=== PATIENT | male | born 1965 | race Caucasian/White ===

== ENCOUNTER 2018-01-21 10:46 | Emergency (ER) | payer OTHER ==
[2018-01-21 10:47] VITALS: BMI 30.9
[2018-01-21 11:02] VITALS: BP 143/76; PULSE 83; RESP 18; TEMP 98; O2SAT 97
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
== END 2018-01-21 12:24 | disposition home or self-care (01) ==
LOC: H.ER 10:46
DX: S33.5XXA Sprain of ligaments of lumbar spine, initial encounter (principal); V43.62XA Car passenger injured in collision with other type car in traffic accident, initial encounter; Y92.414 Local residential or business street as the place of occurrence of the external cause

== ENCOUNTER 2018-03-04 06:04 | Inpatient (IN) | payer OTHER ==
[2018-02-20 14:10] VITALS: BMI 31.4
[2018-03-04] MEDS ORDERED: Bacitracin Ointment 30 GM TUBE ONE (07:09)
[2018-03-04] MEDS ORDERED: Thrombin Topical 5,000 Int Units Spray Kit ONE (07:10)
[2018-03-04] MEDS ORDERED: Absorbable Gelatin Sponge Size 100 ONE (07:10)
[2018-03-04] MEDS ORDERED: APROTININ/FIBRINOGEN(TISSEEL) ONE (07:10)
[2018-03-04 07:28] LABS: HEMOGLOBIN 13.1 g/dL (12.0-18.0); MEAN CELL VOLUME 62.7 fl (80.0-94.0); MEAN CORPUSCULAR HEMOGLOBIN 19.7 pg (27.0-31.0); MEAN CORPUSCULAR HGB CONC 31.4 g/dL (33.0-37.0); RBC 6.65 Mil/uL (4.40-5.90); RED CELL DISTRIBUTION WIDTH 17.2 % (11.5-14.5); WHITE BLOOD COUNT 6.1 K/uL (4.8-10.8)
[2018-03-04] MEDS ORDERED: Succinylcholine 200 mg/10 ml Inj IV ONE (07:41)
[2018-03-04] MEDS ORDERED: Rocuronium 10 mg/ml (5 ml) ONE (07:41)
[2018-03-04] MEDS ORDERED: Midazolam 2 MG/2 ML VIAL ONE (07:41)
[2018-03-04] MEDS ORDERED: Propofol 10 mg/ml Inj (20 ML) ONE ×2 (07:41→09:22)
[2018-03-04] MEDS ORDERED: Lidocaine 4% (Laryng-O-Jet) Kit MM ONE (07:41)
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
[2018-03-04] MEDS ORDERED: Lactated Ringer's 1,000 ML IV ONE (09:00)
[2018-03-04] MEDS ORDERED: Sodium Chloride 0.9% 100 ML IV ONE ×2 (09:10→09:15)
[2018-03-04] MEDS ORDERED: Lidocaine 2% w Epi 1:100,000 Inj IJ ONE (09:10)
[2018-03-04] MEDS ORDERED: HEMOSTATIC MATRIX 10 ML DIS.NEEDLE TOP ONE (09:36)
[2018-03-04] MEDS ORDERED: ePHEDrine 50 mg/ml Inj ONE (09:41)
[2018-03-04] MEDS ORDERED: Neostigmine 1:1000 (1 mg/ml) Inj ONE (09:45)
[2018-03-04] MEDS: Bupivacaine HCl 0.25% PF (30 ml) Inj ONE ×2 (09:52→10:14)
[2018-03-04] MEDS ORDERED: Sodium Chloride 0.9% 500 ML IV ONE (10:15)
[2018-03-04] MEDS: HYDROmorphone 0.5 mg/0.5 ml ISec IVP PRN ×3 (10:48→11:09)
--- NOTE | 2018-03-04 10:49 | PCM.SURG1 ---
Surgeon's Initial Post Op Note - Surgeon's Notes Surgeon: Sagar Ralph MD Wastewater Treatment Operator: Yury PRINCE , Osei PRINCE Type of Anesthesia: General Endo Anesthesia Administered By: Giovani Pre-Operative Diagnosis: LUmbar herniated disc Operative Findings: same Post-Operative Diagnosis: as above Operation Performed: Left L3-L4 laminectomy Specimen/Specimens Removed: none Estimated Blood Loss: EBL {In ML}: 25 Blood Products Given: N/A Drains Used: Martin Bland (x1 ) Post-Op Condition: Good Date of Surgery/Procedure: 03/04/18 Time of Surgery/Procedure: 09:30
[2018-03-04] MEDS ORDERED: oxyCODONE 5 mg Immediate Release Tab PO PRN (11:04)
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
--- NOTE | 2018-03-04 12:27 | RAD ---
PROCEDURE: Intraoperative Fluoroscopy. HISTORY: Laminectomy FINDINGS: Fluoroscopic assistance was provided for laminectomy. Please refer to the operative report from JOE Tse. Total fluoroscopic time (continuous mode) utilized during the procedure 7.2 (seconds). Total exam DLP: (mGy) 4.03
[2018-03-04] MEDS ORDERED: Dextrose 50% SYRINGE Inj (50 ml) IV PRN (13:54)
[2018-03-04] MEDS ORDERED: Glucagon Recombinant 1 mg Inj IM PRN (13:54)
--- NOTE | 2018-03-04 20:50 | OP ---
PROCEDURE DATE: 03/04/2018 PREOPERATIVE DIAGNOSES: Lumbar spondylosis and instability. POSTOPERATIVE DIAGNOSES: Lumbar spondylosis and instability. PROCEDURE: Left L3-4 hemilaminotomy, medial facetectomy, removal of spondylosis, decompression, L3-L5 posterolateral fusion. SURGEON: Sagar Ralph MD BEZEL CUTTER: SURESH Hawkins. Fluoroscopy has been used. Microscope has been used. Yury Guadalupe is a physician assistant professor of marine biology who helped me perform the surgery, he stayed throughout the case from the beginning to the end. DESCRIPTION OF PROCEDURE: The patient was brought to the operating room, anesthetized with general endotracheal anesthesia, and placed in a prone position on a Martin table. Care was taken to protect all the pressure points. Back of the lumbar area thoroughly prepped and draped in a standard sterile manner after marking for a skin incision for a lumbar laminectomy. After prepping and draping the area, the skin has been incised. Bleeding skins had been controlled with bipolar air battle manager. Using a Bovie air battle manager, paraspinal muscles had been detached, attachments of spinous process, lamina at L3-4. Fluoroscopy has been used in order to confirming this level. Monica retractor has been applied to alter the facet joint of L3-4. Under microscopic examination, by using a high-speed drill, the lamina of L3-4, medial part of the facets L3-4 have been drilled. Drilling is continued until top and bottom of the ligamentum flavum seen. Drilling is also continued on the medial part of the facets until the turn of ligamentum flavum seen. Once this had been done, thinned out the lamina, medial part of the facets and ligamentum flavum has been removed, decompressing this area. At this point, lateral aspect of the facet joint and transverse process of L3-4 had been decorticated and previously identified rods have been noted in this area. Posterolateral fusion has been achieved at L3-L5 achieving instability. After the hemostasis was best achieved. Martin drain placed in to the wound, brought out through a separate stab neck skin incision. Muscles and fascia were closed with 1 Vicryl, subcutaneous with 3 Vicryl. Skin has been closed with intradermal 3 Vicryl stitches. The patient tolerated the procedure. After the procedure, mobilized to the recovery room in stabilized condition. Sagar Ralph MD
[2018-03-05 06:23] LABS: ALB/GLOB RATIO 1.1 (1.0-2.1); ALBUMIN 3.7 g/dL (3.5-5.0); ALT/SGPT 37 U/L (21-72); AST/SGOT 28 U/L (17-59); BLOOD UREA NITROGEN 10 mg/dl (9-20); CALCIUM 8.7 mg/dL (8.4-10.2); GFR AFRICAN-AMERICAN > 60; GFR NON-AFRICAN AMERICAN > 60
[2018-03-05 06:26] LABS: BASO % 0.2 % (0.0-2.0); EOS # 0.1 K/uL (0.0-0.7); HEMOGLOBIN 11.7 g/dL (12.0-18.0); LYMPH # 0.9 K/uL (1.0-4.3); LYMPH % 8.5 % (20.0-40.0); MEAN CELL VOLUME 61.6 fl (80.0-94.0); MEAN CORPUSCULAR HEMOGLOBIN 19.7 pg (27.0-31.0); MEAN PLATELET VOLUME 8.9 fl (7.2-11.7); MONO # 1.1 K/uL (0.0-0.8); NEUT % 79.3 % (50.0-75.0); NRBC % 0.1 % (0.0-0.0); PLATELET COUNT 257 K/uL (130-400); RBC 5.94 Mil/uL (4.40-5.90); RED CELL DISTRIBUTION WIDTH 16.9 % (11.5-14.5); WHITE BLOOD COUNT 10.1 K/uL (4.8-10.8)
[2018-03-05] MEDS ORDERED: SITAGLIPTIN PHOS PO SCH (09:00)
[2018-03-05] MEDS ORDERED: METFORMIN HCL PO SCH (09:00)
[2018-03-05] MEDS ORDERED: [UNRECOGNIZED DRUG - OTHER] PO SCH (09:00)
[2018-03-05] MEDS ORDERED: TELMISARTAN 40 MG PO SCH (09:00)
--- NOTE | 2018-03-05 09:05 | CP.PCM.PN ---
Subjective - Date & Time of Evaluation Date of Evaluation: 03/05/18 Time of Evaluation: 08:00 - Subjective Subjective: Patient seen and examined at bedside comfortable. Pain well controlled, 5/10 current. Gloria diet. Pos void. Neg BM. No acute events overnight. Objective - Vital Signs/Intake and Output Vital Signs (last 24 hours): Temp Pulse Resp BP Pulse Ox 99.6 F 80 20 130/70 95 03/05/18 08:02 03/05/18 08:02 03/05/18 08:02 03/05/18 08:34 03/05/18 08:02 Intake and Output: 03/05/18 03/05/18 06:59 18:59 Output Total 30 Balance -30 - Medications Medications: Current Medications Acetaminophen (Tylenol 325mg Tab) 650 mg PO Q6 [facility] Last Admin: 03/05/18 04:02 Dose: 650 mg Atorvastatin Calcium (Lipitor) 20 mg PO DAILY [facility] Last Admin: 03/05/18 08:35 Dose: 20 mg Cyclobenzaprine HCl (Flexeril) 5 mg PO TID [facility] Last Admin: 03/05/18 08:34 Dose: 5 mg Dextrose (Dextrose 50% Inj) 0 ml IV STAT PRN; Protocol PRN Reason: Hypoglycemia Protocol Dextrose (Glutose 15) 0 gm PO ONCE PRN; Protocol PRN Reason: Hypoglycemia Protocol Docusate Sodium (Colace) 100 mg PO BID [facility] Last Admin: 03/05/18 08:35 Dose: 100 mg Glucagon (Glucagen Diagnostic Kit) 0 mg IM STAT PRN; Protocol PRN Reason: Hypoglycemia Protocol Vancomycin HCl 1 gm/ Sodium (Chloride) 250 mls @ 166.667 mls/hr IVPB Q12H [facility] PRN Reason: Protocol Stop: 03/05/18 12:59 Last Admin: 03/04/18 23:05 Dose: 166.667 mls/hr Losartan Potassium (Cozaar) 50 mg PO DAILY [facility] Metformin HCl (Glucophage) 500 mg PO BID [facility] Last Admin: 03/05/18 08:35 Dose: 500 mg Ondansetron HCl (Zofran Inj) 4 mg IVP Q6 PRN PRN Reason: Nausea/Vomiting Oxycodone HCl (Oxycodone Immediate Release Tab) 5 mg PO Q3 PRN PRN Reason: Pain, severe (8-10) Last Admin: 03/04/18 17:18 Dose: 5 mg Ramipril (Altace) 2.5 mg PO DAILY [facility] Last Admin: 03/05/18 08:34 Dose: 2.5 mg Sennosides (Senokot Tab) 17.2 mg PO HS [facility] Last Admin: 03/04/18 22:48 Dose: 17.2 mg Sitagliptin Phosphate (Januvia) 100 mg PO DAILY [facility] Last Admin: 03/05/18 08:34 Dose: 100 mg Tramadol HCl (Ultram) 50 mg PO Q4 PRN PRN Reason: Pain, moderate (4-7) - Labs Labs: 03/05/18 05:25 03/05/18 05:25 - Back Exam Additional comments: Lumbar: Dressings intact will mild bloody drainage from drain sites, MEL drain intact with mild bloody drainage, mild swelling and tenderness sensation intact SP/DP/TN motor intact EHL/FHL pedal pulses intact Assessment and Plan (1) Herniated lumbar intervertebral disc Assessment & Plan: POD#1 s/p Left L3-L4 laminectomy -Drain output high, will monitor and possibly remove bridger AM -continue abx while drains in -pain control -PT/OT -discharge planning -Above d/w Dr. Dang in agreement Status: Acute
--- NOTE | 2018-03-05 10:12 | CP.PCM.PN ---
Subjective - Date & Time of Evaluation Date of Evaluation: 03/05/18 Time of Evaluation: 07:20 - Subjective Subjective: Patient seen and examined bedside with Dr Lee sitting in chair. Reports had PT and was able to ambulate w/o difficulty. Denies fever, n,v,abd pain, chest pain, SOB. . MEL drainage hematic. Patient had fever yesterday. no leukocytosis. will monitor Objective - Vital Signs/Intake and Output Vital Signs (last 24 hours): Temp Pulse Resp BP Pulse Ox 99.6 F 80 20 130/70 95 03/05/18 08:02 03/05/18 08:02 03/05/18 08:02 03/05/18 08:34 03/05/18 08:02 Intake and Output: 03/05/18 03/05/18 06:59 18:59 Output Total 30 Balance -30 - Medications Medications: Current Medications Acetaminophen (Tylenol 325mg Tab) 650 mg PO Q6 [facility] Last Admin: 03/05/18 04:02 Dose: 650 mg Atorvastatin Calcium (Lipitor) 20 mg PO DAILY [facility] Last Admin: 03/05/18 08:35 Dose: 20 mg Cyclobenzaprine HCl (Flexeril) 5 mg PO TID [facility] Last Admin: 03/05/18 08:34 Dose: 5 mg Dextrose (Dextrose 50% Inj) 0 ml IV STAT PRN; Protocol PRN Reason: Hypoglycemia Protocol Dextrose (Glutose 15) 0 gm PO ONCE PRN; Protocol PRN Reason: Hypoglycemia Protocol Docusate Sodium (Colace) 100 mg PO BID [facility] Last Admin: 03/05/18 08:35 Dose: 100 mg Glucagon (Glucagen Diagnostic Kit) 0 mg IM STAT PRN; Protocol PRN Reason: Hypoglycemia Protocol Vancomycin HCl 1 gm/ Sodium (Chloride) 250 mls @ 166.667 mls/hr IVPB Q12H [facility] PRN Reason: Protocol Stop: 03/05/18 12:59 Last Admin: 03/04/18 23:05 Dose: 166.667 mls/hr Losartan Potassium (Cozaar) 50 mg PO DAILY [facility] Metformin HCl (Glucophage) 500 mg PO BID [facility] Last Admin: 03/05/18 08:35 Dose: 500 mg Ondansetron HCl (Zofran Inj) 4 mg IVP Q6 PRN PRN Reason: Nausea/Vomiting Oxycodone HCl (Oxycodone Immediate Release Tab) 5 mg PO Q3 PRN PRN Reason: Pain, severe (8-10) Last Admin: 03/04/18 17:18 Dose: 5 mg Ramipril (Altace) 2.5 mg PO DAILY [facility] Last Admin: 03/05/18 08:34 Dose: 2.5 mg Sennosides (Senokot Tab) 17.2 mg PO HS [facility] Last Admin: 03/04/18 22:48 Dose: 17.2 mg Sitagliptin Phosphate (Januvia) 100 mg PO DAILY [facility] Last Admin: 03/05/18 08:34 Dose: 100 mg Tramadol HCl (Ultram) 50 mg PO Q4 PRN PRN Reason: Pain, moderate (4-7) - Labs Labs: 03/05/18 05:25 03/05/18 05:25 - Constitutional Appears: Non-toxic, No Acute Distress - Head Exam Head Exam: ATRAUMATIC, NORMOCEPHALIC - Eye Exam Eye Exam: Normal appearance - ENT Exam ENT Exam: Mucous Membranes Moist - Neck Exam Neck Exam: Full ROM, Normal Inspection - Respiratory Exam Respiratory Exam: Clear to Ausculation Bilateral. absent: Rales, Rhonchi, Stridor - Cardiovascular Exam Cardiovascular Exam: REGULAR RHYTHM, +S1, +S2 - GI/Abdominal Exam GI & Abdominal Exam: Soft, Normal Bowel Sounds. absent: Tenderness - Back Exam Additional comments: dressing on lower back C/d/I. MEL drainage present - Neurological Exam Neurological Exam: Alert, Awake, Oriented x3 Neuro motor strength exam: Left Upper Extremity: 5, Right Upper Extremity: 5, Left Lower Extremity: 5, Right Lower Extremity: 5 - Psychiatric Exam Psychiatric exam: Normal Affect, Normal Mood - Skin Skin Exam: absent: Rash Assessment and Plan - Assessment and Plan (Free Text) Plan: Assessment/Plan 1)Lumbar disc herniation s/p Left L3-L4 laminectomy POD#1 -pain control tramadol, oxycodone HCL -Regular diet -Ortho recommendation appreciated 2) HTN c/w Telmisartan 40 mg daily 3) DM januvia 100 mg daily after regular diet 4)DVT Prophylaxis -SCD
[2018-03-05 13:46] LABS: ANISOCYTOSIS SLIGHT; EOSINOPHIL 1 % (0-7); LYMPHOCYTE 8 % (20-50); MONOCYTE 9 % (0-10); MYELOCYTE 1 % (0-0); NEUTROPHIL 80 % (42-75); PLATELET ESTIMATE NORMAL (NORMAL); REACTIVE LYMPHOCYTES 1 % (0-0); TOTAL CELLS COUNTED 100
[2018-03-05 13:47] LABS: HYPOCHROMIC SLIGHT; MICROCYTOSIS MODERATE
[2018-03-05] MEDS: ceFAZolin 2 GM in Sodium Chloride 0.9% 100 ML IVPB SCH (16:47)
[2018-03-06 00:05] VITALS: RESP 18
[2018-03-06] MEDS: ceFAZolin 2 GM in Sodium Chloride 0.9% 100 ML IVPB SCH (00:18)
[2018-03-06 08:04] VITALS: BP 138/75; PULSE 77; TEMP 98.8; O2SAT 94
--- NOTE | 2018-03-06 09:51 | CP.PCM.DIS ---
Provider - Provider Date of Admission: 03/04/18 10:49 Attending physician: Tong Hernandez MD Primary care physician: Tong Hernandez MD Time Spent in preparation of Discharge (in minutes): 20 Diagnosis - Discharge Diagnosis (1) S/P laminectomy Status: Acute Comment: -s/p Left L3-L4 laminectomy POD#2 (2) Herniated lumbar intervertebral disc Status: Chronic Comment: -s/p Left L3-L4 laminectomy POD#2 (3) Diabetes mellitus type 2 in obese Status: Chronic Hospital Course - Lab Results Lab Results: Most Recent Lab Values WBC 10.1 K/uL (4.8-10.8) D 03/05/18 05:25 RBC 5.94 Mil/uL (4.40-5.90) H 03/05/18 05:25 Hgb 11.7 g/dL (12.0-18.0) L 03/05/18 05:25 Hct 36.5 % (35.0-51.0) 03/05/18 05:25 MCV 61.6 fl (80.0-94.0) L 03/05/18 05:25 MCH 19.7 pg (27.0-31.0) L 03/05/18 05:25 MCHC 32.0 g/dL (33.0-37.0) L 03/05/18 05:25 RDW 16.9 % (11.5-14.5) H 03/05/18 05:25 Plt Count 257 K/uL (130-400) 03/05/18 05:25 MPV 8.9 fl (7.2-11.7) 03/05/18 05:25 Neut % (Auto) 79.3 % (50.0-75.0) H 03/05/18 05:25 Lymph % (Auto) 8.5 % (20.0-40.0) L 03/05/18 05:25 [place] % (Auto) 11.0 % (0.0-10.0) H 03/05/18 05:25 Eos % (Auto) 1.0 % (0.0-4.0) 03/05/18 05:25 Baso % (Auto) 0.2 % (0.0-2.0) 03/05/18 05:25 Neut # (Auto) 8.0 K/uL (1.8-7.0) H 03/05/18 05:25 Lymph # (Auto) 0.9 K/uL (1.0-4.3) L 03/05/18 05:25 [place] # (Auto) 1.1 K/uL (0.0-0.8) H 03/05/18 05:25 Eos # (Auto) 0.1 K/uL (0.0-0.7) 03/05/18 05:25 Baso # (Auto) 0.0 K/uL (0.0-0.2) 03/05/18 05:25 Neutrophils % (Manual) 80 % (42-75) H 03/05/18 05:25 Lymphocytes % (Manual) 8 % (20-50) L 03/05/18 05:25 Reactive Lymphs % 1 % (0-0) H 03/05/18 05:25 Monocytes % (Manual) 9 % (0-10) 03/05/18 05:25 Eosinophils % (Manual) 1 % (0-7) 03/05/18 05:25 Myelocytes % 1 % (0-0) H 03/05/18 05:25 Platelet Estimate Normal (NORMAL) 03/05/18 05:25 Hypochromasia (manual) Slight 03/05/18 05:25 Anisocytosis (manual) Slight 03/05/18 05:25 Microcytosis (manual) Moderate 03/05/18 05:25 Sodium 136 mmol/l (132-148) 03/05/18 05:25 Potassium 3.6 MMOL/L (3.6-5.0) 03/05/18 05:25 Chloride 99 mmol/L (98-107) 03/05/18 05:25 Carbon Dioxide 24 mmol/L (22-30) 03/05/18 05:25 Anion Gap 17 (10-20) 03/05/18 05:25 BUN 10 mg/dl (9-20) 03/05/18 05:25 Creatinine 0.9 mg/dl (0.8-1.5) 03/05/18 05:25 Est GFR ( Amer) > 60 03/05/18 05:25 Est GFR (Non-Af Amer) > 60 03/05/18 05:25 POC Glucose (mg/dL) 97 mg/dL (65-110) 03/06/18 06:11 Random Glucose 134 mg/dL (75-110) H 03/05/18 05:25 Calcium 8.7 mg/dL (8.4-10.2) 03/05/18 05:25 Total Bilirubin 1.3 mg/dl (0.2-1.3) 03/05/18 05:25 AST 28 U/L (17-59) 03/05/18 05:25 ALT 37 U/L (21-72) 03/05/18 05:25 Alkaline Phosphatase 80 U/L (38-126) 03/05/18 05:25 Total Protein 7.1 G/DL (6.3-8.2) 03/05/18 05:25 Albumin 3.7 g/dL (3.5-5.0) 03/05/18 05:25 Globulin 3.5 gm/dL (2.2-3.9) 03/05/18 05:25 Albumin/Globulin Ratio 1.1 (1.0-2.1) 03/05/18 05:25 Blood Type O POSITIVE 03/04/18 06:55 Antibody Screen Negative 03/04/18 06:55 BBK History Checked Patient has bt 03/04/18 06:55 - Hospital Course Hospital Course: 52 yo ,m, PMhx/o HTN, HLD, DM chronic LBP s/p lumbar fusion in the past persistent and chronic lower back pain with radiculopathy to L>R admitted for lumbar disc herniation and surgical intervention. Patient today s/p Left L3-L4 laminectomy POD#2 , doing well with physical therapy, hemodynamically stable, no surgical complications. Patient seen bedside by Dr hernandez. Patient clear to be discharge later during the day. F/u with Dr padilla in 7 days Discharge Exam - Head Exam Head Exam: ATRAUMATIC, NORMOCEPHALIC - Eye Exam Eye Exam: Normal appearance - ENT Exam ENT Exam: Mucous Membranes Moist - Respiratory Exam Respiratory Exam: Clear to PA & Lateral. absent: Rales, Rhonchi, Wheezes - Cardiovascular Exam Cardiovascular Exam: REGULAR RHYTHM, +S1, +S2 - GI/Abdominal Exam GI & Abdominal Exam: Normal Bowel Sounds, Soft. absent: Guarding, Rebound, Tenderness - Extremities Exam Extremities exam: normal inspection - Back Exam Additional comments: dressing on back C/D/I - Neurological Exam Neurological exam: Alert, Oriented x3 - Psychiatric Exam Psychiatric exam: Normal Affect, Normal Mood - Skin Skin Exam: Normal Color Discharge Plan - Discharge Medications Prescriptions: Cyclobenzaprine [Flexeril] 5 mg PO TID #60 tab - Follow Up Plan Condition: GOOD Instructions: Laminectomy (DC), Postspine Surgery Precautions, Hypertension (DC ), Hypertension (GEN) Additional Instructions: pt. cleared for discharge to Home today by and MEL drains removed Erx sent to pt. [facility] f/u with and in 1 week follow up with primary Md and Dr aPdilla 7-10 days. Referrals: Sagar Padilla MD [Staff Provider] - Tong Hernandez MD [Primary Care Provider] -
--- NOTE | 2018-03-06 12:03 | CP.PCM.PN ---
Subjective - Date & Time of Evaluation Date of Evaluation: 03/06/18 Time of Evaluation: 12:02 - Subjective Subjective: Patient is still complaining of significant back pain, but medication helps. Denies any numbness/tingling today. Objective - Vital Signs/Intake and Output Vital Signs (last 24 hours): Temp Pulse Resp BP Pulse Ox 98.8 F 77 18 138/75 94 L 03/06/18 08:04 03/06/18 08:04 03/06/18 08:04 03/06/18 08:34 03/06/18 08:04 - Medications Medications: Current Medications Acetaminophen (Tylenol 325mg Tab) 650 mg PO Q6 [facility] Last Admin: 03/06/18 10:42 Dose: 650 mg Atorvastatin Calcium (Lipitor) 20 mg PO DAILY [facility] Last Admin: 03/06/18 08:35 Dose: 20 mg Cyclobenzaprine HCl (Flexeril) 5 mg PO TID [facility] Last Admin: 03/06/18 08:34 Dose: 5 mg Dextrose (Dextrose 50% Inj) 0 ml IV STAT PRN; Protocol PRN Reason: Hypoglycemia Protocol Dextrose (Glutose 15) 0 gm PO ONCE PRN; Protocol PRN Reason: Hypoglycemia Protocol Docusate Sodium (Colace) 100 mg PO BID [facility] Last Admin: 03/06/18 08:34 Dose: 100 mg Glucagon (Glucagen Diagnostic Kit) 0 mg IM STAT PRN; Protocol PRN Reason: Hypoglycemia Protocol Losartan Potassium (Cozaar) 50 mg PO DAILY [facility] Last Admin: 03/06/18 08:35 Dose: 50 mg Metformin HCl (Glucophage) 500 mg PO BID [facility] Last Admin: 03/06/18 08:35 Dose: 500 mg Ondansetron HCl (Zofran Inj) 4 mg IVP Q6 PRN PRN Reason: Nausea/Vomiting Oxycodone HCl (Oxycodone Immediate Release Tab) 5 mg PO Q3 PRN PRN Reason: Pain, severe (8-10) Last Admin: 03/04/18 17:18 Dose: 5 mg Ramipril (Altace) 2.5 mg PO DAILY [facility] Last Admin: 03/06/18 08:34 Dose: 2.5 mg Sennosides (Senokot Tab) 17.2 mg PO HS [facility] Last Admin: 03/05/18 21:22 Dose: Not Given Sitagliptin Phosphate (Januvia) 100 mg PO DAILY [facility] Last Admin: 03/06/18 08:35 Dose: 100 mg Tramadol HCl (Ultram) 50 mg PO Q4 PRN PRN Reason: Pain, moderate (4-7) - Labs Labs: 03/05/18 05:25 03/05/18 05:25 - Back Exam Additional comments: 15cc left MEL, 20 right, d/c as per Dr. Ralph dressing changed. Incision intact, dry, no erythema, minimal swelling - Neurological Exam Neuro motor strength exam: Left Lower Extremity: 5, Right Lower Extremity: 5 ( sensation intact L2=S1 b/l) Assessment and Plan (1) Lumbar spondylosis Assessment & Plan: POD#2 s/p Left L3-L4 laminectomy -d/c home -pain control -PT/OT -f/u 2 weeks call for appointment -encourage OOB -Above d/w Dr. Ralph, agrees with above Status: Acute
== END 2018-03-06 11:30 | disposition home or self-care (01) | DRG 460 ==
LOC: H.OPSURG 06:04 → H.MEDSURG1 10:49
PROVIDERS: ADMIT Family Medicine; ATTEND Family Medicine
PROC: 0SG10J1 Fusion of 2 or more Lumbar Vertebral Joints with Synthetic Substitute, Posterior Approach, Posterior Column, Open Approach (ICD-10-PCS; principal; 2018-03-04 09:45)
DX: M47.26 Other spondylosis with radiculopathy, lumbar region (principal); M51.16 Intervertebral disc disorders with radiculopathy, lumbar region; E11.9 Type 2 diabetes mellitus without complications; I10 Essential (primary) hypertension; G89.29 Other chronic pain; E78.00 Pure hypercholesterolemia, unspecified; E78.5 Hyperlipidemia, unspecified; E66.9 Obesity, unspecified; Z68.31 Body mass index [BMI] 31.0-31.9, adult

== ENCOUNTER 2018-12-20 17:52 | Observation (INO) | payer OTHER ==
[2018-12-20 17:52] VITALS: BMI 31.4
[2018-12-20 19:47] LABS: BASO % 0.4 % (0.0-2.0); EOS # 0.1 K/uL (0.0-0.7); EOS % 0.9 % (0.0-4.0); LYMPH # 0.9 K/uL (1.0-4.3); LYMPH % 10.9 % (20.0-40.0); MEAN CELL VOLUME 60.8 fl (80.0-94.0); MEAN CORPUSCULAR HEMOGLOBIN 19.9 pg (27.0-31.0); MEAN CORPUSCULAR HGB CONC 32.7 g/dL (33.0-37.0); MEAN PLATELET VOLUME 8.9 fl (7.2-11.7); MONO # 0.5 K/uL (0.0-0.8); MONO % 5.9 % (0.0-10.0); NEUT # 7.1 K/uL (1.8-7.0); NEUT % 81.9 % (50.0-75.0); NRBC % 0.2 % (0.0-0.0); RBC 6.04 Mil/uL (4.40-5.90); RED CELL DISTRIBUTION WIDTH 16.8 % (11.5-14.5); WHITE BLOOD COUNT 8.7 K/uL (4.8-10.8)
--- NOTE | 2018-12-20 20:35 | ED PDOC ---
Syncope/Near Syncope/Dizziness Time Seen by Provider: 12/20/18 19:09 Chief Complaint (Nursing): Syncope Chief Complaint (Provider): Syncope History Per: Patient History/Exam Limitations: no limitations Current Symptoms Are (Timing): Still Present Additional Complaint(s): Amrit Marcelino is a 53 year old male with a past medical history of HTN, diabetes, and HLD, who presents to the emergency department after feeling an odd sensation of tingling that goes from his legs up his entire body and into his head. Patient states that he thought he needed to have a bowel movement and tried to have one but ended up on the floor. Patient states he woke up and left the bathroom. As per friend, after taking a few steps patient fainted again. Patient states he does not remember second syncopal episode. He denies having any chest pain, shortness of breath or palpitations prior the first syncopal episode. He reports he was feeling normal. PMD: Tong Lee Past Medical History Reviewed: Historical Data, Nursing Documentation, Vital Signs Vital Signs: Last Vital Signs Temp 98.9 F 12/20/18 17:57 Pulse 101 H 12/20/18 17:57 Resp 16 12/20/18 17:57 BP 114/64 12/20/18 17:57 Pulse Ox 99 12/20/18 17:57 - Medical History PMH: Anemia, Gastritis, HTN, Hypercholesterolemia Denies: Chronic Kidney Disease - Surgical History Surgical History: Back Surgery - Family History Family History: States: Unknown Family Hx - Home Medications Home Medications: Ambulatory Orders Medication Instructions Recorded Aspirin [Aspirin EC] 81 mg PO DAILY 07/12/15 Ramipril [Altace] 2.5 mg PO DAILY 07/19/15 Rosuvastatin Calcium [Crestor] 20 mg PO HS 07/19/15 Sitagliptin Phos/Metformin HCl 1 ter PO DAILY 07/19/15 [Janumet Xr 100-1,000 mg Tablet] Telmisartan [Micardis] 40 mg PO DAILY 07/19/15 Tramadol Hydrochloride [Tramadol] 50 mg TID PRN 07/19/15 Acetaminophen/Oxycodone Hydr 1 tab PO TID PRN #60 tab 07/22/15 [Percocet 10/325 mg Tab] Cyclobenzaprine [Flexeril] 5 mg PO TID #60 tab 03/06/18 - Allergies Allergies/Adverse Reactions: Allergies Allergy/AdvReac Type Severity Reaction Status Date / Time No Known Allergies Allergy Verified 12/20/18 17:59 Review of Systems ROS Statement: Except As Marked, All Systems Reviewed And Found Negative Cardiovascular: Negative for: Chest Pain, Palpitations Respiratory: Negative for: Shortness of Breath Neurological: Positive for: Other (syncope; tingling sensation througout body) Physical Exam - Reviewed Nursing Documentation Reviewed: Yes Vital Signs Reviewed: Yes - Physical Exam Appears: Positive for: Non-toxic, No Acute Distress Head Exam: Positive for: ATRAUMATIC, NORMOCEPHALIC Skin: Positive for: Normal Color, Warm, Dry Eye Exam: Positive for: Normal appearance, EOMI, PERRL ENT: Positive for: Normal ENT Inspection Neck: Positive for: Normal, Painless ROM, Supple Cardiovascular/Chest: Positive for: Regular Rate, Rhythm. Negative for: Murmur Respiratory: Positive for: Normal Breath Sounds. Negative for: Respiratory Distress Gastrointestinal/Abdominal: Positive for: Normal Exam, Soft. Negative for: Tenderness Back: Positive for: Normal Inspection. Negative for: L CVA Tenderness, R CVA Tenderness, Vertebral Tenderness Extremity: Positive for: Normal ROM. Negative for: Pedal Edema, Deformity Neurologic/Psych: Positive for: Alert, Oriented. Negative for: Motor/Sensory Deficits - Laboratory Results Result Diagrams: 12/20/18 19:46 12/20/18 20:45 - ECG ECG Rhythm: Positive for: Sinus Rhythm, Right Bundle Branch Block (incomplete), Nonspecific Changes (non specific T wave abnormality) Rate: 93 O2 Sat by Pulse Oximetry: 99 (RA) Pulse Ox Interpretation: Normal Medical Decision Making Medical Decision Making: Time: 1917 Impression: 53 year old male, presenting with x2 syncopal episodes, possibly vasovagal or cardiogenic. --Head CT without contrast --EkG --BMP --Troponin I --Chest xray 2 views --manager cardiac cath Time: 2012 Patient was admitted for multiple episodes of syncope and several cardiac risk factors. Time: 2112 CT Head FINDINGS: BRAIN No acute intraparenchymal hemorrhage. No mass lesion. No CT evidence for acute territorial infarct. No midline shift or extra-axial collections. VENTRICLES: No hydrocephalus. ORBITS: The orbits are unremarkable. SINUSES AND MASTOIDS: The paranasal sinuses and mastoid air cells are clear. BONES: No fracture. SOFT TISSUES: Unremarkable. IMPRESSION: No acute intracranial abnormality. Scribe Attestation: Documented by Ector Robledo, acting as a scribe for Lincoln Killian MD. Provider Scribe Attestation: All medical record entries made by the Scribe were at my direction and pers onally dictated by me. I have reviewed the chart and agree that the record accurately reflects my personal performance of the history, physical exam, medical decision making, and the department course for this patient. I have also personally directed, reviewed, and agree with the discharge instructions and disposition. Disposition - Clinical Impression Clinical Impression: Syncope - Patient ED Disposition Is Patient to be Admitted: Yes - Disposition Disposition: Routine/Home Disposition Time: 20:13 Condition: FAIR
[2018-12-20 20:53] LABS: CALCIUM 9.7 mg/dL (8.4-10.2)
[2018-12-20 21:05] LABS: TROPONIN I 0.015 ng/mL (0.00-0.120)
[2018-12-20] MEDS ORDERED: Patient's Own Med (Acetaminophen/Oxycodone Hydr [Percocet 10/325 Mg Tab] 1 TAB) PO PRN (22:24)
[2018-12-21 07:51] LABS: BASO % 0.7 % (0.0-2.0); EOS # 0.2 K/uL (0.0-0.7); EOS % 2.7 % (0.0-4.0); HEMOGLOBIN 11.3 g/dL (12.0-18.0); LYMPH # 1.6 K/uL (1.0-4.3); LYMPH % 25.8 % (20.0-40.0); MEAN CELL VOLUME 61.3 fl (80.0-94.0); MEAN CORPUSCULAR HEMOGLOBIN 19.6 pg (27.0-31.0); MEAN CORPUSCULAR HGB CONC 31.9 g/dL (33.0-37.0); MONO # 0.5 K/uL (0.0-0.8); MONO % 8.4 % (0.0-10.0); NEUT # 3.9 K/uL (1.8-7.0); NEUT % 62.4 % (50.0-75.0); NRBC % 0.1 % (0.0-0.0); RBC 5.78 Mil/uL (4.40-5.90); RED CELL DISTRIBUTION WIDTH 16.7 % (11.5-14.5); WHITE BLOOD COUNT 6.3 K/uL (4.8-10.8)
[2018-12-21 08:11] LABS: ALB/GLOB RATIO 1.2 (1.0-2.1); ALBUMIN 4.2 g/dL (3.5-5.0); CALCIUM 9.7 mg/dL (8.4-10.2)
[2018-12-21 08:15] LABS: TROPONIN I 0.021 ng/mL (0.00-0.120)
[2018-12-21] MEDS ORDERED: TELMISARTAN 40 MG PO SCH (09:00)
[2018-12-21] MEDS ORDERED: [UNRECOGNIZED DRUG - OTHER] PO SCH (09:00)
[2018-12-21] MEDS ORDERED: METFORMIN HCL PO SCH (09:00)
[2018-12-21] MEDS ORDERED: SITAGLIPTIN PHOS PO SCH (09:00)
--- NOTE | 2018-12-21 09:41 | CT ---
Date of service: 12/20/2018 PROCEDURE: CT HEAD WITHOUT CONTRAST. HISTORY: syncope, poss head trauma COMPARISON: None available. TECHNIQUE: Axial computed tomography images were obtained through the head/brain without intravenous contrast. Radiation dose: Total exam DLP = 838.73 mGy-cm. This CT exam was performed using one or more of the following dose reduction techniques: Automated exposure control, adjustment of the mA and/or kV according to patient size, and/or use of iterative reconstruction technique. FINDINGS: HEMORRHAGE: No intracranial hemorrhage. BRAIN: There are scattered low-attenuation areas in the subcortical supratentorial white matter and more confluent low-attenuation areas in the periventricular white matter. There is no mass, mass effect or abnormal extra-axial fluid collection. There is no territorial infarction. The midline sagittal structures are normal. VENTRICLES: The ventricles are normal in size, shape and configuration. CALVARIUM: There is no calvarial fracture or extracranial soft tissue swelling. PARANASAL SINUSES: Predominantly clear. MASTOID AIR CELLS: Predominantly clear. OTHER FINDINGS: None. IMPRESSION: No acute intracranial abnormality. Mild subcortical supratentorial and periventricular white matter changes are strictly nonspecific, the differential considerations include early chronic microangiopathic changes, demyelinating disease including multiple sclerosis, vasculitis, Lyme disease, gliosis and migraine headache effect amongst others. Clinical follow-up is advised and if clinically indicated correlation with MRI of the brain without and with intravenous contrast may be performed. A preliminary report was provided by [facility].
--- NOTE | 2018-12-21 09:45 | CP.PCM.HP ---
Past Patient History - Tetanus Immunizations Tetanus Immunization: Unknown - Past Medical History & Family History Past Medical History?: Yes - Past Social History Smoking Status: Never Smoked - CARDIAC Hx Hypercholesterolemia: Yes Hx Hypertension: Yes - PULMONARY Hx Respiratory Disorders: No - NEUROLOGICAL Hx Neurological Disorder: No - HEENT Hx HEENT Problems: No - RENAL Hx Chronic Kidney Disease: No - ENDOCRINE/METABOLIC Hx Endocrine Disorders: Yes Hx Diabetes Mellitus Type 2: Yes - HEMATOLOGICAL/ONCOLOGICAL Hx AIDS: No Hx Human Immunodeficiency Virus (HIV): No - INTEGUMENTARY Hx Dermatological Problems: No Other/Comment: chicken pox measles - MUSCULOSKELETAL/RHEUMATOLOGICAL Hx Falls: No - GASTROINTESTINAL Hx Gastritis: Yes - GENITOURINARY/GYNECOLOGICAL Hx Genitourinary Disorders: No - PSYCHIATRIC Hx Substance Use: No - SURGICAL HISTORY Hx Surgeries: Yes Other/Comment: right inguinal hernia repair - ANESTHESIA Hx Anesthesia: Yes Hx Anesthesia Reactions: No Hx Malignant Hyperthermia: No Meds Allergies/Adverse Reactions: Allergies Allergy/AdvReac Type Severity Reaction Status Date / Time No Known Allergies Allergy Verified 12/20/18 17:59 Results - Vital Signs Recent Vital Signs: Last Vital Signs Temp 98.3 F 12/21/18 07:56 Pulse 66 12/21/18 07:56 Resp 18 12/21/18 07:56 BP 120/65 12/21/18 08:49 Pulse Ox 93 L 12/21/18 07:56 - Labs Result Diagrams: 12/21/18 06:50 12/21/18 06:50 Labs: Laboratory Results - last 24 hr 12/20/18 12/20/18 12/21/18 19:46 20:45 06:50 WBC 8.7 6.3 RBC 6.04 H 5.78 Hgb 12.0 11.3 L Hct 36.7 35.5 MCV 60.8 L 61.3 L MCH 19.9 L 19.6 L MCHC 32.7 L 31.9 L RDW 16.8 H 16.7 H Plt Count 296 248 MPV 8.9 9.0 Neut % (Auto) 81.9 H 62.4 Lymph % (Auto) 10.9 L 25.8 [place] % (Auto) 5.9 8.4 Eos % (Auto) 0.9 2.7 Baso % (Auto) 0.4 0.7 Neut # (Auto) 7.1 H 3.9 Lymph # (Auto) 0.9 L 1.6 [place] # (Auto) 0.5 0.5 Eos # (Auto) 0.1 0.2 Baso # (Auto) 0.0 0.0 Sodium 136 Potassium 3.1 L Chloride 95 L Carbon Dioxide 26 Anion Gap 18 BUN 27 H Creatinine 1.5 Est GFR ( Amer) 59 Est GFR (Non-Af Amer) 49 Random Glucose 161 H Calcium 9.7 Phosphorus Magnesium Total Bilirubin AST ALT Alkaline Phosphatase Troponin I 0.0150 Total Protein Albumin Globulin Albumin/Globulin Ratio 12/21/18 06:50 WBC RBC Hgb Hct MCV MCH MCHC RDW Plt Count MPV Neut % (Auto) Lymph % (Auto) [place] % (Auto) Eos % (Auto) Baso % (Auto) Neut # (Auto) Lymph # (Auto) [place] # (Auto) Eos # (Auto) Baso # (Auto) Sodium 138 Potassium 3.0 L Chloride 94 L Carbon Dioxide 29 Anion Gap 18 BUN 33 H Creatinine 1.5 Est GFR ( Amer) 59 Est GFR (Non-Af Amer) 49 Random Glucose 123 H Calcium 9.7 Phosphorus 4.2 Magnesium 2.1 Total Bilirubin 0.9 AST 21 ALT 23 Alkaline Phosphatase 88 Troponin I 0.0210 Total Protein 7.8 Albumin 4.2 Globulin 3.6 Albumin/Globulin Ratio 1.2
[2018-12-21] MEDS ORDERED: Potassium Chloride 20 mEq ER Tab PO ONE (09:46)
--- NOTE | 2018-12-21 09:58 | RAD ---
Date of service: 12/20/2018 HISTORY: Syncope COMPARISON: 07/20/2015 TECHNIQUE: Chest PA and lateral FINDINGS: LINES AND TUBES: None. LUNG AND PLEURA: The lungs are hyperinflated and there is peribronchial thickening with chronic changes in both lungs. There is no focal consolidation. No pleural effusion or pneumothorax. HEART AND MEDIASTINUM: The heart is not enlarged. No aortic atherosclerotic calcifications present. The hilar and mediastinal contours are within normal limits. SKELETAL STRUCTURES: The bony structures are within normal limits for the patient's age. VISUALIZED UPPER ABDOMEN: Normal. OTHER FINDINGS: None. IMPRESSION: No active pulmonary disease. COPD.
--- NOTE | 2018-12-21 15:36 | US ---
Date of service: 12/21/2018 PROCEDURE: Duplex ultrasound of the carotid and vertebral arteries. HISTORY: syncope COMPARISON: None available. TECHNIQUE: Grayscale and duplex Doppler evaluation of the cervical carotid and vertebral arteries were performed. The common carotid, carotid bifurcations and cervical ICA and proximal ECA were evaluated. The vertebral arteries were evaluated for gross patency and direction. FINDINGS: There is bilateral mild intimal thickening. There are mild calcified atherosclerotic plaques in the carotid bulbs. RIGHT CAROTID ARTERIES: Common Carotid Artery: Normal. Maximal flow velocity of 102.3 cm/s. Carotid Bifurcation: Normal. Internal Carotid Artery:Normal. Maximal flow velocity of 57.2 cm/s. External Carotid Artery (proximal branches): Normal. Maximal flow velocity of 145.5 cm/s. ICA/CCA Ratio: 0.6 LEFT CAROTID ARTERIES: Common Carotid Artery: Normal. Maximal flow velocity of 112.0 cm/s. Carotid Bifurcation: Normal. Internal Carotid Artery:Normal. Maximal flow velocity of 68.5 cm/s. External Carotid Artery (proximal branches): Normal. Maximal flow velocity of 108.1 cm/s. ICA/CCA Ratio: 0.6 VERTEBRAL ARTERIES: Right Vertebral Artery: Patent. Antegrade flow. Left Vertebral Artery: Patent. Antegrade flow. OTHER FINDINGS: No atherosclerotic calcification present IMPRESSION: No evidence of hemodynamically significant stenosis in the internal carotid arteries. Patent bilateral vertebral arteries with antegrade flow.
--- NOTE | 2018-12-21 16:41 | CARD ---
APPROVED REPORT Date of service: 12/21/2018 EXAM: Two-dimensional and M-mode echocardiogram with Doppler and color Doppler. Other Information Quality : GoodRhythm : NSR INDICATION Syncope 2D DIMENSIONS IVSd0.98 (0.7-1.1cm)LVDd4.88 (3.9-5.9cm) LVOT Diameter2.31 (1.8-2.4cm)PWd1.06 (0.7-1.1cm) IVSs1.35 (0.8-1.2cm)LVDs3.07 (2.5-4.0cm) FS (%) 37.0 %PWs1.53 (0.8-1.2cm) M-Mode DIMENSIONS Left Atrium (MM)4.43 (2.5-4.0cm)IVSd1.13 (0.7-1.1cm) Aortic Root3.14 (2.2-3.7cm)LVDd5.39 (4.0-5.6cm) Aortic Cusp Exc.1.99 (1.5-2.0cm)PWd0.93 (0.7-1.1cm) IVSs1.09 cmFS (%) 26 % LVDs4.00 (2.0-3.8cm)PWs1.16 cm Aortic Valve AoV Peak Ucpdmmtd704.4cm/sAoV VTI18.8cmAO Peak GR.5mmHg LVOT Peak Imsmbcjb02.8cm/sLVOT VTI10.64cmAO Mean GR.3mmHg VIGNESH (VMAX)1.59er3ZPD (VTI)1.02cm2 Mitral Valve MV E Sonxtrav16.2cm/sMV DECEL [id number] A Remeoirq64.3cm/s MV GWK62nzU/A ratio1.1MVA (PHT)4.41cm2 TDI Lateral E' Peak V7.09cm/sMedial E' Peak V8.56cm/sE/Lateral E'7.8 E/Medial E'6.4 LEFT VENTRICLE The left ventricle is normal size. There is normal left ventricular wall thickness. The left ventricular systolic function is normal. The estimated ejection fraction is 60-65% No regional wall motion abnormalities noted.. Transmitral Doppler flow pattern is Grade II-pseudonormal filling dynamics. No left ventricle thrombus noted on this study. There is no ventricular septal defect visualized. There is no left ventricular aneurysm. There is no mass noted in the left ventricle. RIGHT VENTRICLE The right ventricle is normal size. There is normal right ventricular wall thickness. The right ventricular systolic function is normal. ATRIA The left atrium is mildly dilated. The right atrium size is normal. The interatrial septum is intact with no evidence for an atrial septal defect. AORTIC VALVE The aortic valve is normal in structure. No aortic regurgitation is present. There is no aortic valvular stenosis. There is no aortic valvular vegetation. MITRAL VALVE The mitral valve is normal in structure. There is no evidence of mitral valve prolapse. There is no mitral valve stenosis. There is no mitral valve regurgitation noted. TRICUSPID VALVE The tricuspid valve is normal in structure. There is mild tricuspid valve regurgitation noted. RVSP is calculated at < 20 mm Hg. There is no tricuspid valve prolapse or vegetation. There is no tricuspid valve stenosis. PULMONIC VALVE The pulmonary valve is normal in structure. There is trace pulmonic valvular regurgitation. There is no pulmonic valvular stenosis. GREAT VESSELS The aortic root is normal in size. The ascending aorta is normal in size. The pulmonary artery is normal. The IVC is normal in size and collapses >50% with inspiration. PERICARDIAL EFFUSION There is no pericardial effusion. There is no pleural effusion. <Conclusion> The estimated ejection fraction is 60-65% Transmitral Doppler flow pattern is Grade II-pseudonormal filling dynamics. The left atrium is mildly dilated. There is mild tricuspid valve regurgitation noted. RVSP is calculated at < 20 mm Hg. The IVC is normal in size and collapses >50% with inspiration.
[2018-12-21] MEDS: Enoxaparin 40 mg Syringe SC SCH (16:57)
[2018-12-22 05:07] VITALS: TEMP 98.1
[2018-12-22 06:24] LABS: HEMOGLOBIN 11.2 g/dL (12.0-18.0); MEAN CELL VOLUME 62.3 fl (80.0-94.0); MEAN CORPUSCULAR HEMOGLOBIN 19.7 pg (27.0-31.0); MEAN CORPUSCULAR HGB CONC 31.6 g/dL (33.0-37.0); RBC 5.67 Mil/uL (4.40-5.90); RED CELL DISTRIBUTION WIDTH 16.9 % (11.5-14.5); WHITE BLOOD COUNT 6.4 K/uL (4.8-10.8)
[2018-12-22 06:37] LABS: ALB/GLOB RATIO 1.1 (1.0-2.1); ALBUMIN 4.1 g/dL (3.5-5.0); CALCIUM 9.3 mg/dL (8.4-10.2)
[2018-12-22 08:01] VITALS: RESP 20; O2SAT 95
[2018-12-22] MEDS: Enoxaparin 40 mg Syringe SC SCH (09:03)
[2018-12-22] MEDS ORDERED: Potassium Chloride 20 mEq ER Tab PO ONE (11:01)
--- NOTE | 2018-12-22 12:14 | CP.PCM.CON ---
History of Present Illness - History of Present Illness History of Present Illness: I was asked to evaluate patient by Dr Lee Patient seen 12/22/18 12:11p Patient is a 53 year old male with HTN, hypercholesterolemia DM who presents with syncope. Patient describes straining to have a bowel movement and then passing out. This has happened on previous occasions. He at times feels dizzy when standing up Review of Systems - Constitutional Constitutional: absent: As Per HPI, Anorexia, Chills, Daytime Sleepiness, Excessive Sweating, Fatigue, Fever, Frequent Falls, Headache, Increased Appetite, Lethargy, Malaise, Night Sweats, Snoring, Sleep Apnea, Weight Gain, Weight Loss, Weakness, Other - EENT Eyes: absent: As Per HPI, Blind Spots, Blurred Vision, Change in Vision, Decreased Night Vision, Diplopia, Discharge, Dry Eye, Exophthalmos, Floaters, Irritation, Itchy Eyes, Loss of Peripheral Vision, Pain, Photophobia, Requires Corrective Lenses, Sees Flashes, Spots in Vision, Tunnel Vision, Other Visual D isturbances, Loss of Vision, Other Ears: absent: As Per HPI, Decreased Hearing, Ear Discharge, Ear Pain, Tinnitus, Abnormal Hearing, Disequilibrium, Dizziness, Other Nose/Mouth/Throat: absent: As Per HPI, Epistaxis, Nasal Congestion, Nasal Discharge, Nasal Obstruction, Nasal Trauma, Nose Pain, Post Nasal Drip, Sinus Pain, Sinus Pressure, Bleeding Gums, Change in Voice, Dental Pain, Dry Mouth, Dysphagia, Halitosis, Hoarsness, Lip Swelling, Mouth Lesions, Mouth Pain, Odynophagia, Sore Throat, Throat Swelling, Tongue Swelling, Facial Pain, Neck Pa in, Neck Mass, Other - Cardiovascular Cardiovascular: Syncope - Respiratory Respiratory: absent: As Per HPI, Cough, Dyspnea, Hemoptysis, Dyspnea on Exertion, Wheezing, Snoring, Stridor, Pain on Inspiration, Chest Congestion, Excessive Mucous Production, Change in Mucous Color, Pain with Coughing, Other - Gastrointestinal Gastrointestinal: absent: As Per HPI, Abdominal Pain, Belching, Bloating, Change in Bowel Habits, Change in Stool Character, Coffee Ground Emesis, Constipation, Cramping, Diarrhea, Dyspepsia, Dysphagia, Early Satiety, Excessive Flatus, Fecal Incontinence, Heartburn, Hematemesis, Hematochezia, Loose Stools, Melena, Nausea, Odynophagia, Temesmus, Vomiting, Other - Genitourinary Genitourinary: absent: As Per HPI, Change in Urinary Stream, Difficulty Urinating, Dysuria, Flank Pain, Hematuria, Pyuria, Nocturia, Urinary I ncontinence, Urinary Frequency, Urinary Hesitance, Urinary Urgency, Voiding Freq/Small Amts, Freq UTI, Hx Renal/Bladder Calculi, Hx /Renal Surgery, Bladder Distension, Other - Musculoskeletal Musculoskeletal: absent: As Per HPI, Abnormal Gait, Arthralgias, Atrophy, Back Pain, Deformity, Joint Swelling, Limited Range of Motion, Loss of Height, Muscle Cramps, Muscle Weakness, Myalgias, Neck Pain, Numbness, Radiating Pain into Limb, Stiffness, Tingling, Other - Integumentary Integumentary: absent: As Per HPI, Acne, Alopecia, Bleeding Lesions, Change in Hair, Change in Nails, Change in Pigmentation, Changing Lesions, Dry Skin, Erythema, Furuncle, Hirsutism, Lesions, New Lesions, Non-Healing Lesions, Photosensitivity, Pruritus, Rash, Skin Pain, Skin Ulcer, Sores, Striae, Swelling, Unusual Bruising, Wounds, Jaundice, Other - Neurological Neurological: absent: As Per HPI, Abnormal Gait, Abnormal Hearing, Abnormal Movements, Abnormal Speech, Behavioral Changes, Burning Sensations, Confusion, Convulsions, Disequilibrium, Dizziness, Numbness, Focal Weakness, Frequent Falls, Headaches, Lack of Coordination, Loss of Vision, Memory Loss, Paresthesias, Radicular Pain, Restless Legs, Sensory Deficit, Syncope, Tingling, Tremor, Vertigo, Weakness, Other Visual Disturbances, Other - Psychiatric Psychiatric: absent: As Per HPI, Abnormal Sleep Pattern, Anhedonia, Anxiety, Auditory Hallucinations, Behavioral Changes, Change in Appetite, Change in Libido, Confusion, Depression, Difficulty Concentrating, Hallucinations, Homicidal Ideation, Hopelessness, Irritability, Memory Loss, Mood Swings, Panic Attacks, Paranoia, Suicidal Ideation, Visual Hallucinations, Tactile Hallucinations, Other - Endocrine Endocrine: absent: As Per HPI, Change in Body Appearance, Change in Libido, Cold Intolorance, Deepening of Voice, Excessive Sweating, Fatigue, Flushing, Heat Intolorance, Increase in Ring/Shoe/Hat Size, Palpitations, Polydipsia, Polyphagia, Polyuria, Other - Hematologic/Lymphatic Hematologic: absent: As Per HPI, Easy Bleeding, Easy Bruising, Lymphadenopathy, Other Past Patient History - Tetanus Immunizations Tetanus Immunization: Unknown - Past Medical History & Family History Past Medical History?: Yes - Past Social History Smoking Status: Never Smoked - CARDIAC Hx Hypercholesterolemia: Yes Hx Hypertension: Yes - PULMONARY Hx Respiratory Disorders: No - NEUROLOGICAL Hx Neurological Disorder: No - HEENT Hx HEENT Problems: No - RENAL Hx Chronic Kidney Disease: No - ENDOCRINE/METABOLIC Hx Endocrine Disorders: Yes Hx Diabetes Mellitus Type 2: Yes - HEMATOLOGICAL/ONCOLOGICAL Hx AIDS: No Hx Human Immunodeficiency Virus (HIV): No - INTEGUMENTARY Hx Dermatological Problems: No Other/Comment: chicken pox measles - MUSCULOSKELETAL/RHEUMATOLOGICAL Hx Falls: No - GASTROINTESTINAL Hx Gastritis: Yes - GENITOURINARY/GYNECOLOGICAL Hx Genitourinary Disorders: No - PSYCHIATRIC Hx Substance Use: No - SURGICAL HISTORY Hx Surgeries: Yes Other/Comment: right inguinal hernia repair - ANESTHESIA Hx Anesthesia: Yes Hx Anesthesia Reactions: No Hx Malignant Hyperthermia: No Meds Allergies/Adverse Reactions: Allergies Allergy/AdvReac Type Severity Reaction Status Date / Time No Known Allergies Allergy Verified 12/20/18 17:59 - Medications Medications: Current Medications Aspirin (Ecotrin) 81 mg PO DAILY [facility] Last Admin: 12/22/18 09:00 Dose: 81 mg Atorvastatin Calcium (Lipitor) 10 mg PO HS [facility] Last Admin: 12/21/18 21:25 Dose: 10 mg Cyclobenzaprine HCl (Flexeril) 5 mg PO TID [facility] Last Admin: 12/22/18 09:02 Dose: 5 mg Enoxaparin Sodium (Lovenox) 40 mg SC DAILY [facility]; Protocol Last Admin: 12/22/18 09:03 Dose: 40 mg Losartan Potassium (Cozaar) 100 mg PO DAILY [facility] Last Admin: 12/22/18 08:59 Dose: Not Given Metformin HCl (Glucophage) 500 mg PO BIDWM [facility] Last Admin: 12/22/18 09:03 Dose: 500 mg Ramipril (Altace) 2.5 mg PO DAILY [facility] Last Admin: 12/22/18 09:01 Dose: 2.5 mg Sitagliptin Phosphate (Januvia) 100 mg PO DAILY [facility] Last Admin: 12/22/18 09:03 Dose: 100 mg Tramadol HCl (Ultram) 50 mg PO TID PRN PRN Reason: Pain, moderate (4-7) Physical Exam - Constitutional Appears: Non-toxic - Head Exam Head Exam: NORMAL INSPECTION - Eye Exam Eye Exam: Normal appearance - ENT Exam ENT Exam: Mucous Membranes Moist - Neck Exam Neck exam: Positive for: Normal Inspection, Thyromegaly. Negative for: Lymphadenopathy, Tenderness - Respiratory Exam Respiratory Exam: Clear to Auscultation Bilateral, NORMAL BREATHING PATTERN - Cardiovascular Exam Cardiovascular Exam: REGULAR RHYTHM. absent: Systolic Murmur - GI/Abdominal Exam GI & Abdominal Exam: Normal Bowel Sounds - Rectal Exam Rectal Exam: Deferred - Extremities Exam Extremities exam: Positive for: normal inspection, pedal pulses present. Negative for: pedal edema, tenderness - Back Exam Back exam: NORMAL INSPECTION - Neurological Exam Neurological exam: Alert, Oriented x3 - Psychiatric Exam Psychiatric exam: Normal Affect - Skin Skin Exam: Normal Color Results - Vital Signs Recent Vital Signs: Last Vital Signs Temp 98.1 F 12/22/18 09:00 Pulse 77 12/22/18 09:00 Resp 20 12/22/18 09:00 BP 111/69 12/22/18 09:01 Pulse Ox 95 12/22/18 09:00 - Labs Result Diagrams: 12/22/18 05:30 12/22/18 05:30 Labs: Laboratory Results - last 24 hr 12/21/18 12/21/18 12/21/18 12:00 14:10 22:11 WBC RBC Hgb Hct MCV MCH MCHC RDW Plt Count Sodium Potassium Chloride Carbon Dioxide Anion Gap BUN Creatinine Est GFR ( Amer) Est GFR (Non-Af Amer) POC Glucose (mg/dL) 134 H Random Glucose Hemoglobin A1c 6.8 H Calcium Total Bilirubin AST ALT Alkaline Phosphatase Troponin I 0.0130 Total Protein Albumin Globulin Albumin/Globulin Ratio 12/22/18 12/22/18 12/22/18 05:30 05:30 06:34 WBC 6.4 RBC 5.67 Hgb 11.2 L Hct 35.3 MCV 62.3 L MCH 19.7 L MCHC 31.6 L RDW 16.9 H Plt Count 238 Sodium 137 Potassium 3.2 L Chloride 94 L Carbon Dioxide 30 Anion Gap 16 BUN 39 H Creatinine 1.7 H Est GFR ( Amer) 51 Est GFR (Non-Af Amer) 42 POC Glucose (mg/dL) 130 H Random Glucose 115 H Hemoglobin A1c Calcium 9.3 Total Bilirubin 0.6 AST 18 ALT 23 Alkaline Phosphatase 92 Troponin I Total Protein 7.8 Albumin 4.1 Globulin 3.7 Albumin/Globulin Ratio 1.1 12/22/18 11:07 WBC RBC Hgb Hct MCV MCH MCHC RDW Plt Count Sodium Potassium Chloride Carbon Dioxide Anion Gap BUN Creatinine Est GFR ( Amer) Est GFR (Non-Af Amer) POC Glucose (mg/dL) 86 Random Glucose Hemoglobin A1c Calcium Total Bilirubin AST ALT Alkaline Phosphatase Troponin I Total Protein Albumin Globulin Albumin/Globulin Ratio - EKG Data EKG Interpreted by: Myself EKG shows normal: Sinus rhythm Assessment & Plan (1) Syncope Assessment and Plan: appears vasovagal by history. echocardiogram reveals normal left ventriuclar function. Risk factor reduction was discussed. discusssed mechanism of syncope with the patient. stable for discharge form cardiac standpoint. Status: Acute (2) Hypertension Assessment and Plan: avoid thiazide diuretic or amlodipine. Status: Acute
[2018-12-22 12:15] VITALS: PULSE 67
[2018-12-22 12:16] VITALS: BP 129/62
--- NOTE | 2018-12-23 09:05 | CP.PCM.DIS ---
Provider - Provider Date of Admission: 12/20/18 20:13 Attending physician: Tong Lee MD Consults: 12/21/18 10:17 Cardiology Consult Routine Comment: Consulting Provider: Mohsen Fishman Consulting Physician: Mohsen Fishman Reason for Consult: syncope Time Spent in preparation of Discharge (in minutes): 30 Hospital Course - Lab Results Lab Results: Most Recent Lab Values WBC 6.4 K/uL (4.8-10.8) 12/22/18 05:30 RBC 5.67 Mil/uL (4.40-5.90) 12/22/18 05:30 Hgb 11.2 g/dL (12.0-18.0) L 12/22/18 05:30 Hct 35.3 % (35.0-51.0) 12/22/18 05:30 MCV 62.3 fl (80.0-94.0) L 12/22/18 05:30 MCH 19.7 pg (27.0-31.0) L 12/22/18 05:30 MCHC 31.6 g/dL (33.0-37.0) L 12/22/18 05:30 RDW 16.9 % (11.5-14.5) H 12/22/18 05:30 Plt Count 238 K/uL (130-400) 12/22/18 05:30 MPV 9.0 fl (7.2-11.7) 12/21/18 06:50 Neut % (Auto) 62.4 % (50.0-75.0) 12/21/18 06:50 Lymph % (Auto) 25.8 % (20.0-40.0) 12/21/18 06:50 [place] % (Auto) 8.4 % (0.0-10.0) 12/21/18 06:50 Eos % (Auto) 2.7 % (0.0-4.0) 12/21/18 06:50 Baso % (Auto) 0.7 % (0.0-2.0) 12/21/18 06:50 Neut # (Auto) 3.9 K/uL (1.8-7.0) 12/21/18 06:50 Lymph # (Auto) 1.6 K/uL (1.0-4.3) 12/21/18 06:50 [place] # (Auto) 0.5 K/uL (0.0-0.8) 12/21/18 06:50 Eos # (Auto) 0.2 K/uL (0.0-0.7) 12/21/18 06:50 Baso # (Auto) 0.0 K/uL (0.0-0.2) 12/21/18 06:50 Sodium 137 mmol/l (132-148) 12/22/18 05:30 Potassium 3.2 MMOL/L (3.6-5.0) L 12/22/18 05:30 Chloride 94 mmol/L (98-107) L 12/22/18 05:30 Carbon Dioxide 30 mmol/L (22-30) 12/22/18 05:30 Anion Gap 16 (10-20) 12/22/18 05:30 BUN 39 mg/dl (9-20) H 12/22/18 05:30 Creatinine 1.7 mg/dl (0.8-1.5) H 12/22/18 05:30 Est GFR ( Amer) 51 12/22/18 05:30 Est GFR (Non-Af Amer) 42 12/22/18 05:30 POC Glucose (mg/dL) 86 mg/dL (65-110) 12/22/18 11:07 Random Glucose 115 mg/dL (75-110) H 12/22/18 05:30 Hemoglobin A1c 6.8 % (4.2-6.5) H 12/21/18 12:00 Calcium 9.3 mg/dL (8.4-10.2) 12/22/18 05:30 Phosphorus 4.2 mg/dl (2.5-4.5) 12/21/18 06:50 Magnesium 2.1 MG/DL (1.6-2.3) 12/21/18 06:50 Total Bilirubin 0.6 mg/dl (0.2-1.3) 12/22/18 05:30 AST 18 U/L (17-59) 12/22/18 05:30 ALT 23 U/L (21-72) 12/22/18 05:30 Alkaline Phosphatase 92 U/L (38-126) 12/22/18 05:30 Troponin I 0.0130 ng/mL (0.00-0.120) 12/21/18 14:10 Total Protein 7.8 G/DL (6.3-8.2) 12/22/18 05:30 Albumin 4.1 g/dL (3.5-5.0) 12/22/18 05:30 Globulin 3.7 gm/dL (2.2-3.9) 12/22/18 05:30 Albumin/Globulin Ratio 1.1 (1.0-2.1) 12/22/18 05:30 - Hospital Course Hospital Course: This is a 53 y/o male admitted for sx of dizziness followed by episode of syncope at home after a bm. He claims that he had other episodes of dizziness when getting up from sitting position He was admitted with a dx of syncope and CT scan of the head ECHO and carotid sonogram were all normal. There was no orthostatic hypotension noted. he was observed for 2 days and remained stable hence was discharged to home in stable condition he waas advised to follow up in 7 days to office. Discharge Exam - Head Exam Head Exam: NORMAL INSPECTION - Eye Exam Eye Exam: Normal appearance - Respiratory Exam Respiratory Exam: Clear to PA & Lateral - Cardiovascular Exam Cardiovascular Exam: REGULAR RHYTHM - GI/Abdominal Exam GI & Abdominal Exam: Normal Bowel Sounds - Neurological Exam Neurological exam: CN II-XII Intact, Oriented x3 - Psychiatric Exam Psychiatric exam: Normal Mood Discharge Plan - Follow Up Plan Condition: FAIR Disposition: HOME/ ROUTINE Instructions: Syncope (Fainting) (DC), Vasovagal Response (DC) Additional Instructions: follow up appt with on friday12/28/18 at 9;00am Referrals: Tong Lee MD [Family Provider] - Mohsen Fishman MD [Staff Provider] -
== END 2018-12-22 14:49 | disposition home or self-care (01) ==
LOC: H.ER 17:52 → H.ERHOLD 20:13 → H.TEL 22:04
PROVIDERS: ADMIT Family Medicine; ATTEND Family Medicine
DX: R55 Syncope and collapse (principal); E11.9 Type 2 diabetes mellitus without complications; E78.00 Pure hypercholesterolemia, unspecified; E78.5 Hyperlipidemia, unspecified; I10 Essential (primary) hypertension; Z79.82 Long term (current) use of aspirin; D64.9 Anemia, unspecified; K29.70 Gastritis, unspecified, without bleeding; Z79.899 Other long term (current) drug therapy
CPT/HCPCS: 36415; 70450; 71046; 80048; 80053; 82948; 83036; 83735; 84100; 84484; 85025; 85027; 93306; 93880; 99285; G0378; J1650